=== PATIENT | female | born 1985 | race Caucasian/White ===

== ENCOUNTER 2020-11-26 10:00 | Outpatient (CLI) | payer OTHER | END 2020-11-26 10:14 | disposition home or self-care (01) | LOC: RX STUDY 10:00 | PROVIDERS: ATTEND Internal Medicine Gastroenterology | DX: K22.89 Other specified disease of esophagus (principal); R13.19 Other dysphagia ==

== ENCOUNTER 2024-09-25 11:01 | Outpatient (CLI) | payer OTHER | END 2024-09-25 11:07 | disposition home or self-care (01) | LOC: PRENATAL 11:01 | PROVIDERS: ATTEND Obstetrics & Gynecology Maternal & Fetal Medicine | DX: O44.00 Complete placenta previa NOS or without hemorrhage, unspecified trimester (principal); O09.519 Supervision of elderly primigravida, unspecified trimester; Z3A.19 19 weeks gestation of pregnancy ==

== ENCOUNTER → 2024-11-19 | Outpatient (CLI) | payer OTHER | END | disposition home or self-care (01) | LOC: PRENATAL 10:20 | PROVIDERS: ATTEND Obstetrics & Gynecology Maternal & Fetal Medicine | DX: O26.849 Uterine size-date discrepancy, unspecified trimester (principal); O44.00 Complete placenta previa NOS or without hemorrhage, unspecified trimester; O09.519 Supervision of elderly primigravida, unspecified trimester; Z3A.27 27 weeks gestation of pregnancy ==

== ENCOUNTER → 2025-01-01 09:52 | Outpatient (CLI) | payer OTHER | END | disposition home or self-care (01) | LOC: PRENATAL 09:52 | PROVIDERS: ATTEND Obstetrics & Gynecology Maternal & Fetal Medicine | DX: O26.843 Uterine size-date discrepancy, third trimester (principal); O36.8130 Decreased fetal movements, third trimester, not applicable or unspecified; O44.03 Complete placenta previa NOS or without hemorrhage, third trimester ==

== ENCOUNTER 2025-01-17 11:13 | Inpatient (IN) | payer OTHER ==
[~2025-01-17] VITALS: Ht 162.6 cm; Wt 2.7 kg
[2025-01-17] MEDS ORDERED: PRENATA CHEWAB1 EACH PO (12:29)
[2025-01-17] MEDS ORDERED: OMEGA-31000 MG PO (12:30)
[2025-01-17 13:39] LABS: BASO % 0.2 % (0.1-1.2); EOS # 0.04 (0.04-0.54); EOS % 0.6 % (0.7-7.0); LYMPH # 0.67 (1.18-3.74); LYMPH % 10.6 % (19.3-53.1); MEAN PLATELET VOLUME 11.70 fl (9.4-12.4); MONO # 0.43 (0.24-0.82); MONO % 6.8 % (4.7-12.5); NEUT # 5.14 (1.56-6.13); NEUT % 81.6 % (34.0-71.1); RED CELL DISTRIBUTION WIDTH 13.5 % (11.6-14.4)
[2025-01-17 13:59] LABS: URINE APPEARANCE Clear; URINE BILIRRUBIN Negative (NEGATIVE); URINE BLOOD Negative; URINE COLOR Yellow; URINE GLUCOSE Negative (NEGATIVE); URINE LEUKOCYTE Trace; URINE NITRATE Negative; URINE PROTEIN Negative (NEGATIVE); URINE UROBILINOGEN 0.2 E.U./dl
[2025-01-17 14:02] LABS: INR < 0.93
[2025-01-17 14:03] LABS: URINE BACTERIA 1260.4 uL (0.0-1933); URINE EPITHELIAL CELLS 5.6 uL (0.0-38.8); URINE WBC 12.2 uL (0.0-23.2)
[2025-01-17 14:05] LABS: URINE CAST 0.00 uL (0.0-1.40); URINE KETONE 40 (NEGATIVE); URINE RBC 0.9 uL (0.0-20.8)
[2025-01-17 14:44] LABS: ALT/SGPT 129.0 U/L (12-78); AST/SGOT 57.0 U/L (15-37); BILIRUBIN TOTAL 0.35 mg/dL (0.3-1.2); BUN CREA RATIO 23.0 (7.0-25.0); CREATININE SERUM 0.43 mg/dL (0.55-1.02); GFR 162.63; GLOBULINA 4.0 G/DL (2.4-3.5); GLUCOSE FASTING 70.0 mg/dL (65-100); OSMOLALITY SERUM 275.0 MOSM/KG (275-295)
[2025-01-23 09:16] VITALS: BP 122/84
[2025-01-23] MEDS ORDERED: OXYTOCIN 10 UNITS/ML VIAL ONE ×2 (13:49→20:03)
[2025-01-23] MEDS ORDERED: CEFAZOLIN SODIUM 1,000 MG VIAL ONE (13:50)
[2025-01-23] MEDS ORDERED: ERYTHROMYCIN BASE OPHT 1GM EACH TUBE OP ONE (13:50)
[2025-01-23] MEDS ORDERED: METHYLERGONOVINE MALEATE 0.2 MG/ML AMPUL ONE (14:45)
[2025-01-23] MEDS ORDERED: NAPROXEN 500 MG TABLET PO PRN (15:45)
[2025-01-23] MEDS ORDERED: MORPHINE SULFATE 4 MG/ML CARTRIDGE IV PRN (15:45)
[2025-01-23] MEDS ORDERED: ONDANSETRON HCL 2 MG/ML VIAL IV PRN (15:45)
[2025-01-23] MEDS ORDERED: OXYTOCIN 1,000 ML IV SCH (15:45)
[2025-01-23] MEDS ORDERED: DOCUSATE SODIUM 100MG CAP PO SCH (17:00)
[2025-01-23] MEDS ORDERED: SIMETHICONE 125 MG CAPSULE PO SCH (18:00)
[2025-01-23 20:19] LABS: BASO % 0.2 % (0.1-1.2); EOS # 0.00 (0.04-0.54); EOS % 0.0 % (0.7-7.0); LYMPH # 0.52 (1.18-3.74); LYMPH % 4.3 % (19.3-53.1); MEAN PLATELET VOLUME 11.40 fl (9.4-12.4); MONO # 0.61 (0.24-0.82); MONO % 5.1 % (4.7-12.5); NEUT # 10.87 (1.56-6.13); NEUT % 90.2 % (34.0-71.1); RED CELL DISTRIBUTION WIDTH 13.2 % (11.6-14.4)
[2025-01-24 01:35] VITALS: BP 106/68
[2025-01-24] MEDS ORDERED: ACETAMINOPHEN WITH CODEINE 1 UDTAB TABLET PO PRN (06:00)
[2025-01-24 08:00] VITALS: BP 104/78
[2025-01-24 20:37] VITALS: BP 100/68
[2025-01-25] VITALS: BP 102/67
[2025-01-25 08:20] VITALS: BP 104/68
[2025-01-25 16:00] VITALS: BP 107/75
[2025-01-26] VITALS: BP 102/67
[2025-01-26 08:00] VITALS: BP 113/78
[2025-01-26] MEDS ORDERED: NAPR500T14 PO (10:10)
[2025-01-26] MEDS ORDERED: Tylenol #3 PO (10:10)
== END 2025-01-26 14:14 | disposition home or self-care (01) | DRG 788 ==
LOC: OB/GYN 01-23 08:54 → O/R 01-23 08:54 → LDR 01-23 11:11 → OB/GYN 01-23 15:34
PROVIDERS: ADMIT Obstetrics & Gynecology; ATTEND Obstetrics & Gynecology
PROC: 4A1HXCZ Monitoring of Products of Conception, Cardiac Rate, External Approach (ICD-10-PCS; 2025-01-23)
PROC: 10D00Z1 Extraction of Products of Conception, Low, Open Approach (ICD-10-PCS; principal; 2025-01-23 15:15)
DX: O44.03 Complete placenta previa NOS or without hemorrhage, third trimester (principal); O24.429 Gestational diabetes mellitus in childbirth, unspecified control; Z3A.37 37 weeks gestation of pregnancy; Z37.0 Single live birth